=== PATIENT | male | born 1990 | race Caucasian/White ===

== ENCOUNTER 2018-02-18 10:40 | Emergency (ER) | payer SELFPAY ==
--- NOTE | 2018-02-18 11:05 | EDPHY ---
H & P Stated Complaint: ETOH WITHDRAWAL/TREMORS/SENT FROM [facility] Time Seen by Provider: 02/18/18 11:05 HPI/ROS: HPI: This is a 28-year-old male who presents with Chief Complaint: ETOH WITHDRAWAL/TREMORS/SENT FROM [facility] Location: body Quality: Alcohol withdrawal Duration: Starting this morning approximately 1-3 hours Signs and Symptoms: no fever, no nausea, no vomiting, no hematemesis, no blood in stool, no abdominal bloating, no diarrhea, no back pain, no urinary symptoms , no testicular/groin pain, no indigestion, no chest pain, no shortness of breath Timing: Worsening Severity: [id number] Context: Patient has a history of alcoholism, drinks approximately a 5th of whiskey every evening, last drink was yesterday evening around midnight. He checked himself into the [facility] late last night/early this morning. He reports that approximately 1-3 hours prior to arrival to the emergency room, he started to have tremors, feel anxious and feel nauseous. He does not have a history of alcohol withdrawal seizures or prior hospitalization from alcohol withdrawal. He denies suicidal ideation/homicidal ideation/hallucinations. He is willing to return to the [facility] for further detox. Smokes marijuana but denies any other recreational drug use. Modifying Factors: None Comment: ROS: see HPI Constitutional: No fever, no chills, no weight loss Eyes: No blurred vision Respiratory: No shortness of breath, no cough Cardiovascular: No chest pain, no palpitations Gastrointestinal: No nausea, no vomiting, no diarrhea, no hematemesis, no blood in stool Genitourinary: No dysuria, no blood in urine Extremities: No myalgias, no edema Neurologic: No weakness, no numbness Skin: No rashes, no petechiae Hematologic: No bruising, no bleeding MEDICAL/SURGICAL/SOCIAL HISTORY: Medical history: Alcoholism. Surgical history: Denies Social history: Tobacco user. Employed. Family history noncontributory. CONSTITUTIONAL: Polite and cooperative, adult white male, awake and alert, no obvious distress HEENT: Atraumatic and normocephalic, PERRL, EOMI. Nares patent; no rhinorrhea; no nasal mucosal edema. Tympanic membranes clear. Oropharynx clear, no exudate and moist pink mucosa. Airway patent. No lymphadenopathy. No meningismus. Cardiovascular: Normal S1/S2, regular rate, regular rhythm, without murmur rub or gallop. PULMONARY/CHEST: Symmetrical and nontender. Clear to auscultation bilaterally. Good air movement. No accessory muscle usage. ABDOMEN: Soft, nondistended, nontender, no rebound, no guarding, no peritoneal signs, no masses or organomegaly. No CVAT. EXTREMITIES: 2/2 pulses, strength 5/5, no deformities, no clubbing, no cyanosis or edema. NEUROLOGICAL: no focal neuro deficits. GCS 15. SKIN: Warm and dry, multiple tattoos present, no erythema. no rash. Good capillary refill. PSYCH: Good eye contact, no flight of ideas, organized thought process, fair insight and judgment, no auditory and visual command hallucinations, no suicidal ideation with a plan, no homicidal ideation, not paranoid Source: Patient, RN/MD Exam Limitations: No limitations - Personal History Current Tetanus/Diphtheria Vaccine: Unsure - Medical/Surgical History Hx Asthma: No Hx Chronic Respiratory Disease: No Hx Diabetes: No Hx Cardiac Disease: No Hx Renal Disease: No Hx Cirrhosis: No Hx Alcoholism: Yes Hx HIV/AIDS: No Hx Splenectomy or Spleen Trauma: No Other PMH: ETOH - Social History Smoking Status: Current every day smoker Constitutional: Initial Vital Signs Temperature (C) 37 C 02/18/18 10:52 Heart Rate 99 02/18/18 10:52 Respiratory Rate 18 02/18/18 10:52 Blood Pressure 137/95 H 02/18/18 10:52 O2 Sat (%) 97 02/18/18 10:52 O2 Delivery Mode Room Air Allergies/Adverse Reactions: No Known Allergies Allergy (Unverified 02/18/18 10:52) Home Medications: Medication Instructions Recorded Librium 10 mg (RX) 02/18/18 chlordiazePOXIDE 25MG PREPK#6 1 - 2 tab TAKEHOME Q4 #1 btl 02/18/18 [Librium 25 mg Prepack#6] Medical Decision Making ED Course/Re-evaluation: Vital signs reviewed upon arrival and stable. CIWA scale upon arrival = 11 Given p.o. 2 mg Ativan, 50 mg Librium, PO Zofran 0.4 mg Does not meet M1 hold or Detainer criteria. No signs of delirium/suicidal ideation/homicidal ideation/withdrawal seizures Monitored for 3 hours with improvement in symptoms. CIWA-=6 at discharge. This patient was seen under the supervision of my secondary supervising physician. I evaluated care for this patient independently. Differential Diagnosis: Differential includes but not limited to hypoglycemia, infectious process, electrolyte abnormality, alcohol withdrawal and intoxicants. - Data Points Medications Given: Discontinued Medications Chlordiazepoxide HCl (Librium) 50 mg PO EDNOW ONE Stop: 02/18/18 11:12 Last Admin: 02/18/18 11:16 Dose: 50 mg Lorazepam (Ativan) 2 mg PO EDNOW ONE Stop: 02/18/18 11:12 Last Admin: 02/18/18 11:16 Dose: 2 mg Departure - Departure Disposition: Home, Routine, Self-Care Clinical Impression: Alcohol dependence, daily use, Alcohol abuse Condition: Good Instructions: Chlordiazepoxide (By mouth), Ondansetron (By mouth), Abuse of Alcohol (ED), Alcohol Withdrawal (ED) Additional Instructions: Please slowly refrain from drinking alcohol. Patient will be discharged to the [facility] for further detox and care. Call 911 if you have thoughts of hurting or killing yourself or anyone else, or have any new or worsening symptoms that concern you. Referrals: [facility] Detox 24 Hours [Outside] - As per Instructions Stand Alone Forms: Work Excuse Prescriptions: chlordiazePOXIDE 25MG PREPK#6 [Librium 25 mg Prepack#6] 1 - 2 tab TAKEHOME Q4 # 1 btl
[2018-02-18] MEDS ORDERED: CHLORDIAZEPOXIDE 25MG PREPK#6 BTL TAKEHOME ONE (11:11)
[2018-02-18] MEDS ORDERED: ONDANSETRON DISINTEGRATING 4 MG TAB PO ONE (11:11)
[2018-02-18] MEDS ORDERED: LORazepam 1 MG TAB PO ONE (11:11)
[2018-02-18] MEDS ORDERED: chlordiazePOXIDE 25 MG CAP PO ONE (11:11)
[2018-02-18 12:36] VITALS: BP 156/108
== END 2018-02-18 13:19 | disposition home or self-care (01) ==
DX: F10.239 Alcohol dependence with withdrawal, unspecified (principal); F17.200 Nicotine dependence, unspecified, uncomplicated

== ENCOUNTER 2018-10-19 14:09 | Emergency (ER) | payer MEDICAID ==
[2018-10-19] MEDS ORDERED: LET GEL TOPICAL 1 EA SYR TP ONE (14:15)
[2018-10-19 14:18] VITALS: BP 126/107
[2018-10-19] MEDS ORDERED: SKIN ADHESIVE (DERMABOND) 1 EACH TP ONE (15:21)
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
--- NOTE | 2018-10-20 11:33 | ASMTCMCOM ---
CM Note CM Note Notes: Late Entry from 10/19/18: Requested to assist w/ helping pt get back to the [facility] hotel on [facility]. This CM spoke w/pt and he states he doesn't have any money to pay for a cab. This CM arranged for a Medicaid cab (Conf # [id number]) to take him back to the hotel. Pt also provided a printout of walking directions to the hotel in case he does not want to wait for the cab; pt aware it could be up to 3-4 hours at the most for the cab to arrive but they could also arrive within 30 min. Pt concerned about his girlfriend, Dorota, who is at the [facility]; pt provided a printout of walking directions from the [facility] to the Detox center and also provided Detox address and #. Pt aware that he is not allowed at the detox per their staff because pt's girlfriend is there. Pt states he lives in [place] but is visiting his girlfriend here in [place]. CM available for further assistance if needed. Date Signed: 10/20/2018 11:32 AM Electronically Signed By:Katelyn Peace RN
== END 2018-10-19 16:00 | disposition home or self-care (01) ==
PROC: 0HQ1XZZ Repair Face Skin, External Approach (ICD-10-PCS; principal; 2018-10-19)
DX: S01.81XA Laceration without foreign body of other part of head, initial encounter (principal); F10.929 Alcohol use, unspecified with intoxication, unspecified; W19.XXXA Unspecified fall, initial encounter; Y92.9 Unspecified place or not applicable; Y93.89 Activity, other specified; Y99.9 Unspecified external cause status

== ENCOUNTER 2018-10-29 17:18 | Emergency (ER) | payer MEDICAID ==
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
[2018-10-29 17:49] VITALS: BP 135/90
== END 2018-10-29 18:23 ==
LOC: EDUNIT#
DX: F19.10 Other psychoactive substance abuse, uncomplicated (principal); F10.920 Alcohol use, unspecified with intoxication, uncomplicated; V89.2XXA Person injured in unspecified motor-vehicle accident, traffic, initial encounter; Y92.9 Unspecified place or not applicable; Y93.9 Activity, unspecified; Y99.9 Unspecified external cause status